=== PATIENT | female | born 1965 | race Caucasian/White ===

== ENCOUNTER 2021-12-12 12:17 | Inpatient (IN) ==
[2021-12-12] MEDS ORDERED: Ibuprofen 800 MG TABLET PO ONE (13:28)
[2021-12-12] MEDS ORDERED: *HR* HYDROcodone/Acet 5/325 mg TABLET PO ONE (15:02)
[2021-12-12 21:28] LABS: Basophils % 0.2 %; Eosinophils % 0.2 %; Hematocrit 35.5 % (35.3-44.9); Hemoglobin 11.3 g/dL (11.5-15.4); Immature Granulocytes % 0.2 % (0-4); Lymphocytes # 1.9 K/mcL (0.6-4.6); Lymphocytes % 14.8 %; Mean Corpuscular HGB Conc 31.8 g/dL (31.6-35.5); Mean Corpuscular Hemoglobin 23.9 pg (28.0-33.3); Mean Corpuscular Volume 75.2 fL (83.0-100.0); Mean Platelet Volume 9.1 fL (9.4-12.4); Monocytes # 0.7 K/mcL (0.0-1.3); Monocytes % 5.7 %; Platelet Count 377 K/mcL (140-400); Red Blood Count 4.72 M/mcL (3.82-4.97); Red Cell Distribution Width 18.4 % (11.5-14.5); Segmented Neutrophils % 78.9 %; White Blood Count 12.7 K/mcL (4.3-11.1)
[2021-12-12 21:48] LABS: Alanine Aminotransferase 13 Units/L (7-52); Albumin 4.2 g/dL (3.5-5.7); Albumin/Globulin Ratio 1.2 (1.1-2.2); Alkaline Phosphatase 107 Units/L (34-104); Aspartate Amino Transferase 17 Units/L (13-39); BUN/Creatinine Ratio 12 (6-26); Bilirubin,Total 0.9 mg/dL (0.3-1.0); Blood Urea Nitrogen 9 mg/dL (6-20); Calcium 9.3 mg/dL (8.6-10.3); Carbon Dioxide 21 mEq/L (23-29); Chloride 102 mEq/L (98-107); Globulin 3.4 g/dL (2.4-3.5); Glucose 116 mg/dL (70-105); Osmolality,Calculated 276 (280-300); Potassium 3.7 mEq/L (3.5-5.1); Sodium 133 mEq/L (136-145); Total Protein 7.6 g/dL (6.4-8.9)
[2021-12-12] MEDS ORDERED: Morphine Sulfate 2 MG/ML SYRINGE IVP ONE (22:04)
[2021-12-12] MEDS ORDERED: Melatonin 3 MG TABLET PO PRN (22:09)
[2021-12-12] MEDS ORDERED: Naloxone 0.4 MG/ML INJ IVP PRN (22:09)
[2021-12-12] MEDS ORDERED: Ondansetron ODT 4 MG TAB.RAPDIS SL PRN (22:09)
[2021-12-12] MEDS ORDERED: Dextrose Gel 15 GM/37.5 ML TUBE PO PRN ×2 (22:17)
[2021-12-12] MEDS ORDERED: D5% in Water 1,000 ML IVC PRN (22:17)
[2021-12-12] MEDS ORDERED: *HR* Dextrose 50 % in Water (Syg) 50 ML SYRINGE IVP PRN (22:17)
[2021-12-12 22:28] LABS: Prothrombin Time 11.5 Seconds (9.4-12.1)
[2021-12-12 22:31] LABS: Activated Partial Thrombo Time 32.8 Seconds (26.0-36.0)
[2021-12-13 04:37] LABS: Hemoglobin 10.5 g/dL (11.5-15.4); Mean Corpuscular HGB Conc 30.9 g/dL (31.6-35.5); Mean Corpuscular Hemoglobin 23.8 pg (28.0-33.3); Mean Corpuscular Volume 76.9 fL (83.0-100.0); Mean Platelet Volume 9.3 fL (9.4-12.4); Platelet Count 382 K/mcL (140-400); Red Blood Count 4.42 M/mcL (3.82-4.97); Red Cell Distribution Width 18.5 % (11.5-14.5); White Blood Count 9.8 K/mcL (4.3-11.1)
[2021-12-13 04:54] LABS: Calcium 9.2 mg/dL (8.6-10.3); Magnesium 1.9 mg/dL (1.6-2.6); Phosphorous 3.4 mg/dL (2.7-4.5); Potassium 3.5 mEq/L (3.5-5.1)
[2021-12-13] MEDS ORDERED: *HR* Propofol 200 MG/20 ML VIAL IVP ONE ×2 (09:42→11:53)
[2021-12-13] MEDS ORDERED: Ondansetron 4 MG/2 ML VIAL ONE (09:42)
[2021-12-13] MEDS ORDERED: Lidocaine -MPF 2% 5 ML VIAL ONE (09:42)
[2021-12-13] MEDS ORDERED: CeFAZolin Syr 2,000MG/20 ML 2,000 MG/20 ML SYRINGE IVPB ONE (09:53)
[2021-12-13] MEDS ORDERED: *HR* OxyCODONE Immed Rel 5 MG TABLET PO ONE (09:54)
[2021-12-13] MEDS ORDERED: Ondansetron 4 MG/2 ML VIAL IVP PRN (09:55)
[2021-12-13] MEDS ORDERED: *HR* FentaNYL (PF) 100 MCG/2 ML VIAL IVP PRN (09:55)
[2021-12-13] MEDS ORDERED: *HR* OxyCODONE Immed Rel 5 MG TABLET PO PRN (09:55)
[2021-12-13] MEDS ORDERED: Ringers Solution, Lactated 1,000 ML IVC SCH (10:00)
[2021-12-13] MEDS ORDERED: Ropivacaine/PF 0.5% 30 ML VIAL ONE (10:05)
[2021-12-13] MEDS ORDERED: *HR* FentaNYL (PF) 100 MCG/2 ML VIAL ONE (11:01)
[2021-12-13] MEDS ORDERED: *HR* Midazolam HCl 2 MG/2 ML VIAL ONE (11:02)
[2021-12-13] MEDS ORDERED: Bupivacaine 0.5%-Epi 1:200,000 50 ML VIAL ONE (11:54)
[2021-12-13] MEDS ORDERED: *HR* HYDROMORPHONE 2 MG/ML VIAL ONE (12:11)
[2021-12-13] MEDS: *HR* HYDROmorphone PF 0.5 MG/0.5 ML SYRINGE IVP PRN ×2 (12:23→12:30)
[2021-12-13] MEDS ORDERED: Ondansetron ODT 4 MG TAB.RAPDIS SL PRN (13:12)
[2021-12-13] MEDS ORDERED: Naloxone 0.4 MG/ML INJ IVP PRN (13:12)
[2021-12-13] MEDS ORDERED: Melatonin 3 MG TABLET PO PRN (13:12)
[2021-12-13] MEDS ORDERED: Dextrose Gel 15 GM/37.5 ML TUBE PO PRN ×2 (13:12)
[2021-12-13] MEDS ORDERED: D5% in Water 1,000 ML IVC PRN (13:12)
[2021-12-13] MEDS ORDERED: *HR* Dextrose 50 % in Water (Syg) 50 ML SYRINGE IVP PRN (13:12)
[2021-12-13 13:30] VITALS: TEMP 97.6
[2021-12-13 15:03] VITALS: O2SAT 98
[2021-12-13 15:13] VITALS: BP 133/98; PULSE 98
[2021-12-13] MEDS ORDERED: CeFAZolin 2 GM/120 ML BAG IVPB SCH (16:00)
== END 2021-12-13 16:19 | disposition short-term general hospital (02) | DRG 494 ==
LOC: 4WAOSI 12:17 → EMEROOARM 12:17 → SUATTDRO 22:07 → 4WAOSI 23:06
PROVIDERS: ADMIT Internal Medicine; ATTEND Nurse Practitioner